=== PATIENT | female | born 1960 | race Two or more races ===

== ENCOUNTER 2018-06-07 05:40 | Inpatient (IN) | payer BC ==
[~2018-06-07] VITALS: Ht 160 cm; Wt 83.6 kg
[~2018-06-07 05:40] MED LIST: ACET325T14 PO; ALBU18HF INH; LACT10SO28 PO; LORA1TAB PO; METH750T2 PO; PANT40TA3 PO; TRAM50TA2 PO
[2018-06-07] MEDS ORDERED: LACTATED RINGERS 1,000 ML IV SCH (06:10)
[2018-06-07] MEDS ORDERED: IBUP-1623 PO (06:12)
[2018-06-07] MEDS ORDERED: TIZA4CAP PO (06:13)
[2018-06-07 06:18] VITALS: BP 121/88
[2018-06-07] MEDS ORDERED: BUPIVACAINE/PF 0.5% ONE (07:12)
[2018-06-07] MEDS ORDERED: EPINEPHRINE 1 MG/ML, 1ML ONE (07:12)
[2018-06-07] MEDS ORDERED: BACITRACIN 50,000 UNIT ONE (07:12)
[2018-06-07] MEDS ORDERED: FENTANYL PF 250 MCG/5ML ONE (07:18)
[2018-06-07] MEDS ORDERED: CEFAZOLIN 1,000 MG ONE (08:49)
[2018-06-07] MEDS ORDERED: ROCURONIUM 10MG/ML,5ML ONE (08:49)
[2018-06-07] MEDS ORDERED: PROPOFOL 10 MG/ML, 20ML ONE (08:49)
[2018-06-07] MEDS ORDERED: SUCCINYLCHOLINE 20 MG/ML, 10ML ONE (08:49)
[2018-06-07] MEDS ORDERED: ONDANSETRON 2MG/ML, 2ML ONE (08:49)
[2018-06-07] MEDS ORDERED: DEXAMETHASONE 4 MG/ML, 1ML ONE ×2 (08:49)
[2018-06-07] MEDS ORDERED: NEOSTIGMINE 1 MG/ML, 10ML ONE (08:49)
[2018-06-07] MEDS ORDERED: GLYCOPYRROLATE 0.2MG/1ML, 5ML ONE (08:49)
[2018-06-07] MEDS ORDERED: FENTANYL PF 100 MCG/2ML ONE ×2 (09:08→09:58)
[2018-06-07] MEDS ORDERED: ACETAMINOPHEN 325 MG TABLET PO PRN ×2 (09:30→12:30)
[2018-06-07] MEDS ORDERED: ONDANSETRON 2MG/ML, 2ML IV PRN ×2 (09:30→12:30)
[2018-06-07] MEDS ORDERED: OXYcodone 5 MG/5 ML ORAL.SOL UDC PO PRN (09:30)
[2018-06-07] MEDS ORDERED: MEPERIDINE/PF 25MG/0.5ML IVPush PRN (09:30)
[2018-06-07] MEDS ORDERED: MORPHINE SULFATE 4 MG/ML, 1ML IVPush PRN (09:30)
[2018-06-07] MEDS ORDERED: ONDANSETRON ODT 8 MG PO PRN (09:30)
[2018-06-07] MEDS ORDERED: PROCHLORPERAZINE 5 MG/ML, 2ML IV PRN (09:30)
[2018-06-07] MEDS: FENTANYL PF 100 MCG/2ML IV PRN ×2 (10:00→10:15)
[2018-06-07] MEDS ORDERED: HYDROmorphone 2 MG/ML, 1ML ONE ×2 (10:02→10:40)
[2018-06-07] MEDS: HYDROmorphone 1 MG/ML, 1ML IV PRN ×6 (10:05→10:50)
[2018-06-07] MEDS ORDERED: DIAZEPAM 5 MG/ML, 10ML VIAL IVPush PRN (10:30)
[2018-06-07] MEDS ORDERED: OXYcodone 5 MG/5 ML ORAL.SOL UDC ONE (10:39)
[2018-06-07 11:51] VITALS: BP 127/71
[2018-06-07] MEDS ORDERED: HYDROmorphone 1 MG/ML, 1ML IV ONE (12:00)
[2018-06-07] MEDS ORDERED: OXYcodone/APAP 5/325MG TABLET PO PRN (12:30)
[2018-06-07] MEDS ORDERED: CYCLOBENZAPRINE 10 MG TABLET PO PRN (12:30)
[2018-06-07] MEDS ORDERED: morphine SULFATE 10 MG/ML, 1ML IV PRN (12:30)
[2018-06-07] MEDS ORDERED: BISACODYL 10 MG SUPP PR PRN (12:30)
[2018-06-07] MEDS ORDERED: PROMETHAZINE 25 MG/ML, 1ML IM PRN (12:30)
[2018-06-07] MEDS ORDERED: DIPHENHYDRAMINE 50 MG/ML, 1ML IVPush PRN (12:30)
[2018-06-07] MEDS ORDERED: MAGNESIUM HYDROXIDE 8%, 30ML UDC PO PRN (12:30)
[2018-06-07] MEDS ORDERED: LABETALOL 5MG/ML, 20ML IV PRN (12:30)
[2018-06-07] MEDS: NS + 20MEQ KCL 1,000 ML IV SCH (14:17)
[2018-06-07 15:06] VITALS: BP 122/74
[2018-06-07] MEDS ORDERED: ALBUTEROL SULFATE 2.5 MG/3 ML NPPB SCH (16:00)
[2018-06-07] MEDS: HYDROcodone/APAP 5/325 TABLET PO PRN ×2 (16:33→20:33)
[2018-06-07] MEDS: CEFAZOLIN PMX 1GM/50ML 50 ML IVPB SCH (18:02)
[2018-06-07 19:20] VITALS: BP 144/88
[2018-06-07] MEDS: TIZANIDINE 4MG TABLET PO PRN (20:33)
[2018-06-08 00:29] VITALS: BP 106/70
[2018-06-08] MEDS: HYDROcodone/APAP 5/325 TABLET PO PRN ×3 (00:52→09:34)
[2018-06-08] MEDS: CEFAZOLIN PMX 1GM/50ML 50 ML IVPB SCH (02:09)
[2018-06-08 04:28] VITALS: BP 111/72
[2018-06-08] MEDS: TIZANIDINE 4MG TABLET PO PRN (05:03)
[2018-06-08] MEDS ORDERED: PANTOPROZOLE 40MG TABLET PO SCH (07:30)
[2018-06-08 07:38] VITALS: BP 109/74
[2018-06-08] MEDS: NS + 20MEQ KCL 1,000 ML IV SCH (08:00)
[2018-06-08] MEDS ORDERED: DIPHENHYDRAMINE 25 MG CAPSULE ONE (08:11)
[2018-06-08] MEDS ORDERED: DIPHENHYDRAMINE 25 MG CAPSULE PO PRN (08:30)
[2018-06-08] MEDS ORDERED: SENNA/DOCUSATE TABLET PO SCH (09:00)
[2018-06-08] MEDS ORDERED: HYDR-3307 PO (09:31)
== END 2018-06-08 10:38 | disposition home or self-care (01) | DRG 472 ==
LOC: ORIP 05:40 → 4NOR 11:30 → DCLOUNGE 06-08 10:16
PROVIDERS: ADMIT Neurological Surgery; ATTEND Neurological Surgery
PROC: 0RB30ZZ Excision of Cervical Vertebral Disc, Open Approach (ICD-10-PCS; 2018-06-07)
PROC: 0RG20A0 Fusion of 2 or more Cervical Vertebral Joints with Interbody Fusion Device, Anterior Approach, Anterior Column, Open Approach (ICD-10-PCS; principal; 2018-06-07 07:30)
DX: M48.02 Spinal stenosis, cervical region (principal); M47.12 Other spondylosis with myelopathy, cervical region; M47.22 Other spondylosis with radiculopathy, cervical region; K21.9 Gastro-esophageal reflux disease without esophagitis; M06.9 Rheumatoid arthritis, unspecified; J44.9 Chronic obstructive pulmonary disease, unspecified; F17.210 Nicotine dependence, cigarettes, uncomplicated; I73.9 Peripheral vascular disease, unspecified; M54.16 Radiculopathy, lumbar region; D32.0 Benign neoplasm of cerebral meninges; G93.0 Cerebral cysts; Z90.49 Acquired absence of other specified parts of digestive tract; Z90.710 Acquired absence of both cervix and uterus; Z91.048 Other nonmedicinal substance allergy status; Z88.8 Allergy status to other drugs, medicaments and biological substances
CPT/HCPCS: 36415; 72040; 86850; 86900; C1713; C1776; G0378; J0171; J0690; J1100; J1170; J2405; J2704; J2710; J3010; J3360; J3480; J3490; C1762; J0330; J1200; J2270; J7120; Q0163

== ENCOUNTER 2019-08-20 08:31 | Inpatient (IN) | payer BC ==
[~2019-08-20] VITALS: Ht 160 cm; Wt 69.0 kg
[~2019-08-20 08:31] MED LIST changes: +BACITRACIN 50,000 UNIT ONE; +BUPIVACAINE/PF 0.5% ONE; +EPINEPHRINE 1 MG/ML, 1ML ONE; +HYDR-36 PO; +IBUP-1623 PO; +THROMBIN 5,000 UNIT VIAL TP ONE; +TIZA4CAP PO; +VANCOMYCIN 1,000 MG ONE
[2019-08-20] MEDS ORDERED: DICL50TA2 PO (08:52)
[2019-08-20] MEDS ORDERED: PROM25TA10 PO (08:52)
[2019-08-20] MEDS ORDERED: DIVA125T2 PO (08:52)
[2019-08-20] MEDS ORDERED: [UNRECOGNIZED DRUG - OTHER] SC (08:52)
[2019-08-20] MEDS ORDERED: LISI40TA PO (08:52)
[2019-08-20] MEDS ORDERED: BACITRACIN 50,000 UNIT ONE (09:09)
[2019-08-20] MEDS ORDERED: LACTATED RINGERS 1,000 ML IV SCH (09:26)
[2019-08-20] MEDS ORDERED: FREM225S SQ (09:29)
[2019-08-20] MEDS ORDERED: DIHY1SPR NS (09:29)
[2019-08-20] MEDS ORDERED: MIDAZOLAM 1 MG/ML, 2ML ONE (09:47)
[2019-08-20] MEDS ORDERED: FENTANYL PF 250 MCG/5ML ONE (09:47)
[2019-08-20] MEDS ORDERED: OXYcodone 5 MG/5 ML ORAL.SOL UDC PO PRN (10:00)
[2019-08-20] MEDS ORDERED: PROMETHAZINE 25 MG/ML, 1ML IV PRN (10:00)
[2019-08-20] MEDS ORDERED: FENTANYL PF 100 MCG/2ML IV PRN (10:00)
[2019-08-20] MEDS ORDERED: PROPOFOL 10 MG/ML, 20ML ONE ×10 (10:17→12:34)
[2019-08-20] MEDS ORDERED: NEOSTIGMINE 1 MG/ML, 10ML ONE (10:23)
[2019-08-20] MEDS ORDERED: ACETAMINOPHEN 500 MG TABLET ONE (10:37)
[2019-08-20] MEDS ORDERED: FAMOTIDINE 20 MG TABLET ONE (10:38)
[2019-08-20] MEDS ORDERED: GABAPENTIN 300 MG CAPSULE ONE (10:38)
[2019-08-20] MEDS ORDERED: GABAPENTIN 300 MG CAPSULE PO ONE (11:00)
[2019-08-20] MEDS ORDERED: ACETAMINOPHEN 500 MG TABLET PO ONE (11:00)
[2019-08-20] MEDS ORDERED: OxyconTIN ER 10 MG TAB.ER PO ONE (11:00)
[2019-08-20] MEDS ORDERED: FAMOTIDINE 20 MG TABLET PO ONE (11:00)
[2019-08-20] MEDS ORDERED: NEOSPORIN OINT, 15GM ONE (11:06)
[2019-08-20] MEDS ORDERED: HYDROmorphone 2 MG/ML, 1ML ONE (11:13)
[2019-08-20] MEDS ORDERED: CEFAZOLIN 1,000 MG ONE (11:29)
[2019-08-20] MEDS ORDERED: GLYCOPYRROLATE 0.2MG/1ML, 5ML ONE (12:34)
[2019-08-20] MEDS ORDERED: PHENYLEPHRINE 10 MG/ML ONE ×2 (12:34)
[2019-08-20] MEDS ORDERED: ONDANSETRON 2MG/ML, 2ML ONE (12:34)
[2019-08-20] MEDS ORDERED: EPHEDRINE 50 MG/ML, 1ML ONE (12:34)
[2019-08-20] MEDS ORDERED: SUCCINYLCHOLINE 20 MG/ML, 10ML ONE (12:34)
[2019-08-20] MEDS ORDERED: SENNA/DOCUSATE TABLET PO PRN (14:30)
[2019-08-20] MEDS ORDERED: BISACODYL 10 MG SUPP PR PRN (14:30)
[2019-08-20] MEDS ORDERED: PHARMACY MAY ADJ FOR RENAL FX MC PRN (14:30)
[2019-08-20] MEDS ORDERED: LABETALOL 5MG/ML, 20ML IVPush PRN (14:30)
[2019-08-20] MEDS ORDERED: MAGNESIUM HYDROXIDE 8%, 30ML UDC PO PRN (14:30)
[2019-08-20] MEDS ORDERED: METHOCARBAMOL 750 MG TABLET PO PRN (14:30)
[2019-08-20] MEDS ORDERED: PROMETHAZINE 25 MG/ML, 1ML IM PRN (14:30)
[2019-08-20] MEDS ORDERED: ONDANSETRON 2MG/ML, 2ML IVPush PRN (14:30)
[2019-08-20] MEDS ORDERED: DIPHENHYDRAMINE 25 MG CAPSULE PO PRN (14:30)
[2019-08-20] MEDS: HYDROmorphone 1 MG/ML, 1ML INJ IVPush PRN ×2 (14:45→15:00)
[2019-08-20] MEDS ORDERED: METHOCARBAMOL 1000MG/10 ML IVPB STA (14:50)
[2019-08-20] MEDS ORDERED: HYDROmorphone 1 MG/ML, 1ML INJ ONE ×2 (14:55→16:05)
[2019-08-20] MEDS ORDERED: OXYcodone 5 MG/5 ML ORAL.SOL UDC ONE (14:55)
[2019-08-20] MEDS ORDERED: METHOCARBAMOL 1,000 MG in DEXTROSE 5% 100 ML IV ONE (15:30)
[2019-08-20] MEDS: ALBUTEROL SULFATE INH SCH (17:43)
[2019-08-20] MEDS: NS + 20MEQ KCL 1,000 ML IV SCH (17:43)
[2019-08-20] MEDS: CEFAZOLIN PMX 1GM/50ML 50 ML IVPB SCH (20:01)
[2019-08-20] MEDS: SODIUM CHLORIDE FLUSH 10ML SYR IVF SCH (20:02)
[2019-08-20 20:03] VITALS: BP 114/69
[2019-08-20] MEDS: HYDROcodone/APAP 10/325 MG TABLET PO PRN (23:08)
[2019-08-20 23:26] VITALS: BP 133/86
[2019-08-21] MEDS: DIAZEPAM 5 MG TABLET PO PRN ×3 (00:26→22:39)
[2019-08-21 03:07] VITALS: BP 129/89
[2019-08-21] MEDS: NS + 20MEQ KCL 1,000 ML IV SCH ×2 (03:10→18:19)
[2019-08-21] MEDS: HYDROcodone/APAP 10/325 MG TABLET PO PRN ×5 (03:10→20:37)
[2019-08-21] MEDS: CEFAZOLIN PMX 1GM/50ML 50 ML IVPB SCH (03:10)
[2019-08-21 06:17] LABS: BASOPHILS # (AUTO) 0.02 x10^3/uL (0-0.1); BASOPHILS % (AUTO) 0 % (0-1); EOSINOPHILS # (AUTO) 0.01 x10^3/uL (0-0.4); EOSINOPHILS % (AUTO) 0 % (1-7); LYMPHOCYTES # (AUTO) 1.82 x10^3/uL (1-3.4); LYMPHOCYTES % (AUTO) 19 % (22-44); MD NO; MEAN CORPUSCULAR HEMOGLOBIN 31.5 pg (27.0-34.8); MEAN CORPUSCULAR HGB CONC 33.4 g/dL (32.4-35.8); MEAN CORPUSCULAR VOLUME 94.6 fL (80-100); MEAN PLATELET VOLUME 9.3 fL (7.4-10.4); MONOCYTES # (AUTO) 0.64 x10^3/uL (0.2-0.8); MONOCYTES % (AUTO) 7 % (2-9); NEUTROPHILS # (AUTO) 7.19 x10^3/uL (1.8-6.8); NEUTROPHILS % (AUTO) 74 % (42-75); PLATELET COUNT 266 x10^3/uL (130-400); RED BLOOD COUNT 3.08 x10^6/uL (3.82-5.3); RED CELL DISTRIBUTION WIDTH 12.4 % (9.6-15.2)
[2019-08-21 06:38] LABS: ANION GAP 6 mmol/L (5-15); CALCIUM 8.6 mg/dL (8.5-10.1); CHLORIDE 97 mmol/L (98-107); CREATININE 0.63 mg/dL (0.55-1.02)
[2019-08-21 07:00] VITALS: BP 121/84
[2019-08-21] MEDS: DEXAMETHASONE 4 MG/ML, 1ML IVPush SCH ×3 (08:45→20:37)
[2019-08-21] MEDS: LISINOPRIL 40 MG TABLET PO SCH (08:45)
[2019-08-21] MEDS: PANTOPROZOLE 40MG TABLET PO SCH (08:45)
[2019-08-21] MEDS: SODIUM CHLORIDE FLUSH 10ML SYR IVF SCH ×2 (08:46→20:38)
[2019-08-21] MEDS ORDERED: LACTULOSE 20 GM/30 ML UDC PO PRN (09:00)
[2019-08-21] MEDS: ALBUTEROL SULFATE INH SCH (09:00)
[2019-08-21] MEDS ORDERED: DIVALPROEX 250 MG TABLET.DR PO SCH (09:00)
[2019-08-21 09:08] LABS: ANION GAP 7 mmol/L (5-15); CALCIUM 8.7 mg/dL (8.5-10.1); CHLORIDE 96 mmol/L (98-107); CREATININE 0.61 mg/dL (0.55-1.02)
[2019-08-21 13:17] VITALS: BP 123/80
[2019-08-21 19:33] VITALS: BP 103/65
[2019-08-22 01:02] VITALS: BP 135/81
[2019-08-22] MEDS: HYDROcodone/APAP 10/325 MG TABLET PO PRN ×4 (01:14→17:17)
[2019-08-22] MEDS: DEXAMETHASONE 4 MG/ML, 1ML IVPush SCH ×4 (02:51→20:04)
[2019-08-22] MEDS: NS + 20MEQ KCL 1,000 ML IV SCH ×2 (05:00→14:03)
[2019-08-22 05:46] LABS: BASOPHILS # (AUTO) 0.01 x10^3/uL (0-0.1); BASOPHILS % (AUTO) 0 % (0-1); EOSINOPHILS % (AUTO) 0 % (1-7); LYMPHOCYTES # (AUTO) 0.78 x10^3/uL (1-3.4); LYMPHOCYTES % (AUTO) 9 % (22-44); MD NO; MEAN CORPUSCULAR HEMOGLOBIN 32.2 pg (27.0-34.8); MEAN CORPUSCULAR HGB CONC 34.2 g/dL (32.4-35.8); MEAN CORPUSCULAR VOLUME 94.1 fL (80-100); MEAN PLATELET VOLUME 9.6 fL (7.4-10.4); MONOCYTES # (AUTO) 0.29 x10^3/uL (0.2-0.8); MONOCYTES % (AUTO) 3 % (2-9); NEUTROPHILS # (AUTO) 7.45 x10^3/uL (1.8-6.8); NEUTROPHILS % (AUTO) 87 % (42-75); PLATELET COUNT 287 x10^3/uL (130-400); RED BLOOD COUNT 3.09 x10^6/uL (3.82-5.3); RED CELL DISTRIBUTION WIDTH 12.9 % (9.6-15.2)
[2019-08-22 05:55] LABS: ANION GAP 4 mmol/L (5-15); CALCIUM 9.3 mg/dL (8.5-10.1); CHLORIDE 104 mmol/L (98-107); CREATININE 0.74 mg/dL (0.55-1.02)
[2019-08-22 07:15] VITALS: BP 123/82
[2019-08-22] MEDS: ALBUTEROL SULFATE INH SCH (08:06)
[2019-08-22] MEDS: DIVALPROEX 500 MG TAB.ER.24H PO SCH (08:06)
[2019-08-22] MEDS: SODIUM CHLORIDE FLUSH 10ML SYR IVF SCH ×2 (08:06→20:04)
[2019-08-22] MEDS: LISINOPRIL 40 MG TABLET PO SCH (08:06)
[2019-08-22] MEDS: PANTOPROZOLE 40MG TABLET PO SCH (08:06)
[2019-08-22] MEDS: DIAZEPAM 5 MG TABLET PO PRN ×2 (09:34→17:49)
[2019-08-22 13:42] VITALS: BP 121/80
[2019-08-22 19:16] VITALS: BP 104/73
[2019-08-22] MEDS: HYDROcodone/APAP 5/325 TABLET PO PRN (22:16)
[2019-08-23] MEDS: NS + 20MEQ KCL 1,000 ML IV SCH (01:00)
[2019-08-23] MEDS: DEXAMETHASONE 4 MG/ML, 1ML IVPush SCH ×2 (02:32→08:29)
[2019-08-23] MEDS: HYDROcodone/APAP 5/325 TABLET PO PRN ×2 (02:32→06:50)
[2019-08-23 02:43] VITALS: BP 128/82
[2019-08-23 05:10] LABS: MEAN CORPUSCULAR VOLUME 94.2 fL (80-100); MEAN PLATELET VOLUME 9.5 fL (7.4-10.4); PLATELET COUNT 334 x10^3/uL (130-400); RED BLOOD COUNT 3.09 x10^6/uL (3.82-5.3); RED CELL DISTRIBUTION WIDTH 12.4 % (9.6-15.2)
[2019-08-23 05:11] LABS: ANION GAP 5 mmol/L (5-15); CALCIUM 9.4 mg/dL (8.5-10.1); CHLORIDE 98 mmol/L (98-107)
[2019-08-23 05:25] LABS: BASOPHILS # (AUTO) 0.01 x10^3/uL (0-0.1); BASOPHILS % (AUTO) 0 % (0-1); EOSINOPHILS % (AUTO) 0 % (1-7); LYMPHOCYTES # (AUTO) 1.67 x10^3/uL (1-3.4); LYMPHOCYTES % (AUTO) 10 % (22-44); MD SCAN; MONOCYTES # (AUTO) 0.66 x10^3/uL (0.2-0.8); MONOCYTES % (AUTO) 4 % (2-9); NEUTROPHILS # (AUTO) 13.89 x10^3/uL (1.8-6.8); NEUTROPHILS % (AUTO) 86 % (42-75)
[2019-08-23 07:14] VITALS: BP 116/83
[2019-08-23] MEDS: DIVALPROEX 500 MG TAB.ER.24H PO SCH (08:29)
[2019-08-23] MEDS: PANTOPROZOLE 40MG TABLET PO SCH (08:29)
[2019-08-23] MEDS: SODIUM CHLORIDE FLUSH 10ML SYR IVF SCH (08:29)
[2019-08-23] MEDS: LISINOPRIL 40 MG TABLET PO SCH (08:29)
[2019-08-23] MEDS ORDERED: METH4TAB2 PO (09:09)
[2019-08-23 09:30] VITALS: BP 117/78
== END 2019-08-23 10:15 | disposition home or self-care (01) | DRG 473 ==
LOC: ORIP 08:31 → 4NE 17:08 → DCLOUNGE 08-23 10:00
PROVIDERS: ADMIT Neurological Surgery; ATTEND Neurological Surgery
PROC: 0RG4071 Fusion of Cervicothoracic Vertebral Joint with Autologous Tissue Substitute, Posterior Approach, Posterior Column, Open Approach (ICD-10-PCS; 2019-08-20)
PROC: 01N10ZZ Release Cervical Nerve, Open Approach (ICD-10-PCS; 2019-08-20)
PROC: 01N80ZZ Release Thoracic Nerve, Open Approach (ICD-10-PCS; 2019-08-20)
PROC: 0RG2071 Fusion of 2 or more Cervical Vertebral Joints with Autologous Tissue Substitute, Posterior Approach, Posterior Column, Open Approach (ICD-10-PCS; principal; 2019-08-20 11:00)
DX: M96.0 Pseudarthrosis after fusion or arthrodesis (principal); M48.02 Spinal stenosis, cervical region; K21.9 Gastro-esophageal reflux disease without esophagitis; G83.9 Paralytic syndrome, unspecified; G43.909 Migraine, unspecified, not intractable, without status migrainosus; M06.9 Rheumatoid arthritis, unspecified; J43.9 Emphysema, unspecified; Z90.710 Acquired absence of both cervix and uterus; Z82.3 Family history of stroke; M54.12 Radiculopathy, cervical region; Y83.8 Other surgical procedures as the cause of abnormal reaction of the patient, or of later complication, without mention of misadventure at the time of the procedure
CPT/HCPCS: 36415; 72100; S0020; 72125; 72141; 80048; 85025; 86850; 86900; 95938; 95941; C1713; G0378; J0171; J0690; J1100; J1170; J2250; J2405; J2704; J2710; J3010; J3370; J3480; C1762; J0330; J2370; J2800; J7120